=== PATIENT | male | born 1980 | race Caucasian/White ===

== ENCOUNTER 2018-03-16 23:27 | Emergency (ER) | payer BC ==
[2018-03-16] MEDS ORDERED: Clindamycin HCl 150 MG Cap PO ONE (23:28)
[2018-03-16] MEDS ORDERED: Acetaminophen/oxyCODONE 325-5 MG Tab PO ONE (23:28)
--- NOTE | 2018-03-16 23:45 | EDM.PDOC ---
ED HPI GENERAL MEDICAL PROBLEM - General Chief Complaint: General Stated Complaint: MOUTH PAIN [id number] Time Seen by Provider: 03/16/18 23:38 Source of Information: Reports: Patient History Limitations: Reports: No Limitations - History of Present Illness INITIAL COMMENTS - FREE TEXT/NARRATIVE: C/o lower right jaw pain and swelling for one week, and on Amoxicillin. Unable to sleep tonight and swelling seems to be worse. Onset: Today Treatments [employer]: Reports: Acetaminophen, NSAIDS Right Lower Face Pain Score (Numeric/FACES): 10 ED ROS GENERAL - Review of Systems Review Of Systems: ROS reveals no pertinent complaints other than HPI. ED EXAM, GENERAL - Physical Exam Exam: See Below Exam Limited By: No Limitations General Appearance: Alert, Moderate Distress Eye Exam: Bilateral Eye: EOMI Ears: Normal External Exam Nose: Normal Inspection Throat/Mouth: Normal Voice. No: Normal Gums (moderate swelling right lower medial and lateral surrounding 2 nd and 3rd molars.) Head: Facial Swelling (right lower jaw) Neck: Lymphadenopathy (R) Respiratory/Chest: No Respiratory Distress Cardiovascular: Normal Peripheral Pulses, Regular Rate, Rhythm Extremities: Normal Inspection Neurological: Alert, Oriented, Normal Cognition, Normal Gait Psychiatric: Normal Affect, Normal Mood Skin Exam: Warm, Dry, Intact, Normal Color Course - Vital Signs Last Recorded V/S: Last Vital Signs Temp 97.6 F 03/16/18 23:46 Pulse 91 03/16/18 23:46 Resp 18 03/16/18 23:46 BP 145/89 H 03/16/18 23:46 Pulse Ox 99 03/16/18 23:46 - Orders/Labs/Meds Meds: Medications Discontinued Medications Generic Name Dose Route Start Last Admin Trade Name Sebastien PRN Reason Stop Dose Admin Clindamycin HCl Confirm 03/17/18 00:09 Cleocin Administered 03/17/18 00:10 Dose 300 mg .ROUTE .STK-MED ONE Ceftriaxone Sodium 1 gm/ 0 gm 03/16/18 23:48 03/16/18 23:59 Lidocaine HCl 2.1 ml IM 03/16/18 23:49 1 inj ONETIME ONE Administration Ketorolac Tromethamine 30 mg 03/16/18 23:48 03/17/18 00:01 Toradol IM 03/16/18 23:49 30 mg ONETIME ONE Administration Oxycodone/Acetaminophen Confirm 03/17/18 00:09 Percocet 325-5 Mg Administered 03/17/18 00:10 Dose 2 tab .ROUTE .STK-MED ONE Departure - Departure Time of Disposition: 23:49 Disposition: Home, Self-Care 01 Condition: Good Clinical Impression: Dental abscess - Discharge Information *PRESCRIPTION DRUG MONITORING PROGRAM REVIEWED*: No Instructions: Dental Abscess, Qeqn-gh-Plow Forms: ED Department Discharge Additional Instructions: clindamycin 300mg three times daily for one week alternate ibuprofen 600mg every 6 hours as needed moderate pain percocet 5/325 one every 6 hours as needed for severe pain follow up with dentist
[2018-03-16] MEDS ORDERED: Ketorolac 30 MG/ML SDV IM ONE (23:48)
[2018-03-16] MEDS ORDERED: cefTRIAXone 1 GM, Lidocaine 1% 2.1 ML IM ONE ×2 (23:48)
[2018-03-17] MEDS ORDERED: Acetaminophen/oxyCODONE 325-5 MG Tab ONE (00:09)
[2018-03-17] MEDS ORDERED: Clindamycin HCl 150 MG Cap ONE (00:09)
== END 2018-03-17 00:17 | disposition home or self-care (01) ==
LOC: DL.ED 23:27
DX: K04.7 Periapical abscess without sinus (principal)
CPT/HCPCS: 96372; 99283; J0696; J1885; A9270-GY

== ENCOUNTER 2018-03-18 13:21 | Emergency (ER) | payer BC ==
[2018-03-18] MEDS ORDERED: Sodium Chloride 0.9% 10 ML Syringe FLUSH PRN (13:45)
[2018-03-18] MEDS ORDERED: Dexamethasone 4 MG/ML SDV IVPUSH ONE (13:46)
[2018-03-18] MEDS ORDERED: Piperacillin/Tazobactam 4.5 GM in Sodium Chloride 0.9% 100 ML IV ONE (13:46)
[2018-03-18] MEDS ORDERED: Sodium Chloride 0.9% 1,000 ML IV ONE (13:46)
[2018-03-18] MEDS ORDERED: HYDROmorphone 1 MG/ML Syringe IVPUSH ONE (13:47)
[2018-03-18] MEDS ORDERED: Iopamidol 612 MG/ML 100 ML Bottle IVPUSH ONE (13:48)
[2018-03-18 14:29] LABS: ANION GAP 15.8; CHLORIDE,CL 101 mmol/L (101-111); SODIUM,NA 134 mmol/L (135-145)
--- NOTE | 2018-03-18 17:35 | EDM.PDOC ---
"Scribed by Elly Hdez 03/18/18 1526 for Rebeka Alicea MD ED HPI GENERAL MEDICAL PROBLEM - General Chief Complaint: ENT Problem Stated Complaint: swollen face Time Seen by Provider: 03/18/18 13:36 Source of Information: Reports: Patient, RN, RN Notes Reviewed History Limitations: Reports: No Limitations - History of Present Illness INITIAL COMMENTS - FREE TEXT/NARRATIVE: Patient presents to ER with complaint of right sided facial swelling. Patient had right facial swelling and pain for a week and was on amoxicillin and it did not get better. He was seen in ER on 03/16/18 and treated with Rocephin 1 gram IM and prescribed clindamycin 300mg tid, but still had increased swelling. Patient had the tooth pulled on Friday by Dr. Farfan. The swelling has increased since then. He saw (dentist) today and she recommended him to present to ER for IV antibiotics. Admits to fever/chills sensation. Onset: Gradual Duration: Getting Worse Location: Reports: Face (right side) Quality: Reports: Ache Severity: Severe Improves with: Reports: None Worsens with: Reports: None Associated Symptoms: Reports: No Other Symptoms Treatments CHUCK BONER: Reports: Other Medication(s) (Amoxicillin, Clindamycin) Right Face Pain Score (Numeric/FACES): 10 - Related Data Allergies Allergy/AdvReac Type Severity Reaction Status Date / Time No Known Allergies Allergy Verified 03/18/18 13:28 Home Meds: Home Meds . [No Known Home Meds] 03/18/18 [History] Past Medical History - Past Health History Medical/Surgical History: Denies Medical/Surgical History - Past Surgical History HEENT Surgical History: Reports: Other (See Below) (dental extraction 03/17/18.) Social & Family History - Family History Family Medical History: Noncontributory - Caffeine Use Caffeine Use: Reports: Coffee - Living Situation & Occupation Living situation: Reports: with Family ED ROS ENT - Review of Systems Review Of Systems: ROS reveals no pertinent complaints other than HPI. ED EXAM, ENT - Physical Exam Exam: See Below Exam Limited By: No Limitations General Appearance: Alert, WD/WN, No Apparent Distress Eye Exam: Bilateral Eye: Normal Inspection Ears: Normal External Exam Nose: Normal Inspection Mouth/Throat: Normal Oropharynx, Dental Pain, Dental Tenderness (s/p Rt mandibular molar extraction with no bleeding or drainage), Other (right mandibular facial and submandibular soft tissue swelling with tenderness, increased warmth and erythema of the skin. ) Head: Atraumatic, Normocephalic Neck: Other (submandibular swelling and lymphadenopathy on the right. ). No: Lymphadenopathy (L) Respiratory/Chest: No Respiratory Distress, Normal Breath Sounds Cardiovascular: Regular Rate, Rhythm Neurological: Alert, Oriented, CN II-XII Intact, Normal Cognition, Normal Gait, No Motor/Sensory Deficits Psychiatric: Normal Mood Course - Vital Signs Last Recorded V/S: Last Vital Signs Temp 36.5 C 03/18/18 13:24 Pulse 94 03/18/18 13:24 Resp 15 03/18/18 13:24 BP 148/86 H 03/18/18 13:24 Pulse Ox 98 03/18/18 13:24 - Orders/Labs/Meds Orders: Active Orders 24 hr Category Date Time Status Peripheral IV Care [RC] . DIRECTED Care 03/18/18 13:45 Active CULTURE BLOOD [BC] Stat Lab 03/18/18 13:55 Received Sodium Chloride 0.9% [Saline Flush] Med 03/18/18 13:45 Active 10 ml FLUSH ASDIRECTED PRN Peripheral IV Insertion Adult [OM.PC] Stat Oth 03/18/18 13:44 Ordered Medication Orders Sodium Chloride (Saline Flush) 10 ml FLUSH ASDIRECTED PRN PRN Reason: Keep Vein Open Last Admin: 03/18/18 14:15 Dose: 10 ml Labs: Laboratory Tests 03/18/18 03/18/18 03/18/18 Range/Units 13:55 13:55 13:55 WBC 16.5 H (5.0-10.0) 10^3/uL RBC 4.74 (4.6-6.2) 10^6/uL Hgb 14.0 (14.0-18.0) g/dL Hct 40.8 (40.0-54.0) % MCV 86.1 (80-100) fL MCH 29.5 (27.0-34.0) pg MCHC 34.3 (33.0-35.0) g/dL Plt Count 205 (150-450) 10^3/uL Neut % (Auto) 81.1 H (42.2-75.2) % Lymph % (Auto) 6.3 L (20.5-50.1) % Pine % (Auto) 12.1 H (2-8) % Eos % (Auto) 0.4 L (1.0-3.0) % Baso % (Auto) 0.1 (0.0-1.0) % Sodium 134 L (135-145) mmol/L Potassium 3.8 (3.6-5.0) mmol/L Chloride 101 (101-111) mmol/L Carbon Dioxide 21.0 (21.0-31.0) mmol/L Anion Gap 15.8 BUN 12 (7-18) mg/dL Creatinine 0.8 (0.6-1.3) mg/dL Est Cr Clr Drug Dosing 112.98 mL/min Estimated GFR (MDRD) > 60 Glucose 113 H (74-105) mg/dL Calcium 9.4 (8.4-10.2) mg/dl C-Reactive Protein > 20.0 H (0.0-1.3) mg/dL Meds: Medications Generic Name Dose Route Start Last Admin Trade Name Freq PRN Reason Stop Dose Admin Sodium Chloride 10 ml 03/18/18 13:45 03/18/18 14:15 Saline Flush FLUSH 10 ml ASDIRECTED PRN Administration Keep Vein Open Discontinued Medications Generic Name Dose Route Start Last Admin Trade Name Freq PRN Reason Stop Dose Admin Dexamethasone 20 mg 03/18/18 13:46 03/18/18 14:22 Dexamethasone IVPUSH 03/18/18 13:47 20 mg ONETIME ONE Administration Hydromorphone HCl 1 mg 03/18/18 13:47 03/18/18 14:32 Dilaudid IVPUSH 03/18/18 13:48 1 mg ONETIME ONE Administration Piperacillin Sod/Tazobactam 100 mls @ 200 mls/hr 03/18/18 13:46 03/18/18 14: 48 Sod 4.5 gm/ Sodium Chloride IV 03/18/18 14:15 200 mls/hr ONETIME ONE Administration Sodium Chloride 1,000 mls @ 999 mls/hr 03/18/18 13:46 03/18/18 14:20 Normal Saline IV 03/18/18 14:46 999 mls/hr .BOLUS ONE Administration Iopamidol 100 ml 03/18/18 13:48 03/18/18 15:06 Isovue-300 (61%) IVPUSH 03/18/18 13:49 100 ml ONETIME ONE Administration - Radiology Interpretation Free Text/Narrative:: [facility] [place] [facility] Final Radiology Report Call: [phone] assistance Online chat: [email or web address] Name: VESNA CHOWDHURY Age: 37Years M Date: 03/18/2018 SSN: -- : [id number] Study: CT MAXILLOFACIAL/SINUSES W Requesting Physician: REBEKA ALICEA Images: 232 Addl Studies: Provided Clinical History: RIGHT MANDIBULAR SWELLING, PAIN S/P DENTAL PROCEDURE Contrast: With Contrast Medium: ISOVUE 300 Contrast Amount: 100 mL Contrast Method: LEFT HAND Page 1 of 2 EXAM: CT Maxillofacial With Intravenous Contrast CLINICAL HISTORY: 37 years old, male; Signs and symptoms; Mass, lump, or swelling; Other: Mandibular; Additional info: Right mandibular swelling, pain S/P dental procedure TECHNIQUE: Axial computed tomography images of the face with intravenous contrast. All CT scans at this facility use at least one of these dose optimization techniques: automated exposure control; mA and/or kV adjustment per patient size (includes targeted exams where dose is matched to clinical indication); or iterative reconstruction. Coronal and sagittal reformatted images were created and reviewed. CONTRAST: 100 mL of ISOVUE 300 administered intravenously. COMPARISON: No relevant prior studies available. FINDINGS: Bones/joints: 2.6 x 1 cm abscess is seen along the inner aspect of the right mandibular body (image 10). No acute fracture. Soft tissues: Unremarkable. Orbits: Unremarkable. Submandibular/parotid glands: Edema in the right submandibular and perimandibular region. Sinuses: Mucosal thickening in the right maxillary sinus suggesting chronic sinusitis. Dental: Evidence of mandibular teeth extraction. IMPRESSION: VESNA CHOWDHURY | Final Radiology Report CONFIDENTIALITY STATEMENT This report is intended only for use by the referring physician, and only in accordance with law. If you received this in error, call [phone]. Page 2 of 2 Cellulitic edema in the right submandibular and perimandibular region. 2.6 x 1 cm abscess is seen along the inner aspect of the right mandibular body ( image 10). This is likely related to the patient's recent dental procedure. Mucosal thickening in the right maxillary sinus suggesting chronic sinusitis. Thank you for allowing us to participate in the care of your patient. Dictated and Authenticated by: Krista Washington MD 03/18/2018 3:16 PM Central Time ([place] & [place]) CT Results Date: 03/18/18 - Re-Assessments/Exams Free Text/Narrative Re-Assessment/Exam: 03/18/18 17:[address] Horton (oral/facial surg.) he advises to admit pt, continue zosyn IV abx tx, and he will coordinate an evaluation with the admitting physician when he gets back in town tomorrow. Pt will be admitted to Dr. Rocha at [facility]. Departure - Departure Time of Disposition: 17:28 Disposition: DC/Tfer to [facility] 02 Condition: Serious Clinical Impression: Dental abscess, Mandibular abscess - Discharge Information *PRESCRIPTION DRUG MONITORING PROGRAM REVIEWED*: Not Applicable *COPY OF PRESCRIPTION DRUG MONITORING REPORT IN PATIENT JALYN: Not Applicable Forms: ED Department Discharge, Interfacility Transfer EMTALA - My Orders Last 24 Hours: My Active Orders 03/18/18 13:44 Peripheral IV Insertion Adult [OM.PC] Stat 03/18/18 13:45 Peripheral IV Care [RC] . DIRECTED Sodium Chloride 0.9% [Saline Flush] 10 ml FLUSH ASDIRECTED PRN 03/18/18 13:55 CULTURE BLOOD [BC] Stat - Assessment/Plan Last 24 Hours: My Active Orders 03/18/18 13:44 Peripheral IV Insertion Adult [OM.PC] Stat 03/18/18 13:45 Peripheral IV Care [RC] . DIRECTED Sodium Chloride 0.9% [Saline Flush] 10 ml FLUSH ASDIRECTED PRN 03/18/18 13:55 CULTURE BLOOD [BC] Stat I have read and agree with the documentation that has been completed regarding this visit. By signing this record, I attest that the documentation was completed in my physical presence and is an accurate record of the encounter."
== END 2018-03-18 18:00 ==
LOC: DL.ED 13:21
DX: K04.7 Periapical abscess without sinus (principal); M27.2 Inflammatory conditions of jaws
CPT/HCPCS: 36415; 70487; 80048; 85025; 86140; 87040; 96361; 96365; 96375; 99284; J1100; J1170; J2543; J7030; J7050; Q9967

== ENCOUNTER 2024-05-26 15:48 | Emergency (ER) | payer SELFPAY | END 2024-05-26 16:30 | disposition home or self-care (01) | LOC: DL.ED 15:48 | DX: K03.1 Abrasion of teeth (principal) | CPT/HCPCS: 64400; 99282; 99282-25 ==